=== PATIENT | male | born 1990 | race Caucasian/White ===

== ENCOUNTER 2025-06-13 21:31 | Emergency (ER) | payer OTHER ==
[~2025-06-13] VITALS: Ht 190.5 cm; Wt 131.5 kg
[2025-06-13] MEDS ORDERED: Ondansetron HCl 2 MG / ML 2ML Vial IV PRN (22:05)
[2025-06-13 23:00] VITALS: BP 172/105
[2025-06-14] MEDS ORDERED: Hydrocortisone/Pramoxine Rectal Foam 10 GM PR ONE (00:10)
[2025-06-14] MEDS ORDERED: [UNRECOGNIZED DRUG - OTHER] PR (00:20)
== END 2025-06-14 00:38 | disposition home or self-care (01) ==
LOC: ER 21:31
DX: K59.09 Other constipation (principal); K62.89 Other specified diseases of anus and rectum
CPT/HCPCS: 99283; A9270